=== PATIENT | male | born 1975 | race Two or more races ===

== ENCOUNTER 2024-02-17 11:20 | Inpatient (IN) | payer OTHER ==
[2024-02-17 12:02] VITALS: BMI 20.7
[2024-02-17] MEDS ORDERED: TRIMETHOBENZAMIDE HCL 200MG/2ML INJ IM ONE (12:27)
[2024-02-17] MEDS: TRIMETHOBENZAMIDE HCL 200MG/2ML INJ IM ONE (12:37)
[2024-02-17] MEDS ORDERED: BENZONATATE 200 MG CAPSULE PO PRN (14:12)
[2024-02-17] MEDS ORDERED: IBUPROFEN 400 MG TABLET (FP) PO PRN (14:12)
[2024-02-17] MEDS ORDERED: NICOTINE POLACRILEX 2 MG LOZENGE BC PRN (14:12)
[2024-02-17] MEDS ORDERED: MAGNESIUM HYDROX 2400MG/30ML ORAL SUSPENSION 30 ML CUP PO PRN (14:12)
[2024-02-17] MEDS ORDERED: guaiFENesin 600 MG TABLET.ER (FP) PO PRN (14:12)
[2024-02-17] MEDS ORDERED: IBUPROFEN 600 MG TABLET (FP) PO PRN (14:12)
[2024-02-17] MEDS ORDERED: NALOXONE (NYS OPIOID OVERDOSE PROGRAM) 4 MG/0.1 ML SPRAY NS PRN (14:12)
[2024-02-17] MEDS ORDERED: ACETAMINOPHEN 325 MG TABLET (FP) PO PRN (14:12)
[2024-02-17] MEDS ORDERED: BENZOCAINE/MENTHOL (CHLORASEPTIC ) LOZENGE MM PRN (14:12)
[2024-02-17] MEDS ORDERED: ONDANSETRON *ODT* 4 MG TABLET SL PRN (14:12)
[2024-02-17] MEDS ORDERED: NALOXONE (NARCAN) HCL 4 MG/0.1 ML SPRAY NS PRN (14:12)
[2024-02-17] MEDS ORDERED: POLYETHYLENE GLYCOL (HEALTHYLAX) 3350 17 GM PACKET PO PRN (14:12)
[2024-02-17] MEDS ORDERED: NICOTINE POLACRILEX 2 MG GUM BUC PRN (14:12)
[2024-02-17] MEDS ORDERED: LOPERAMIDE HCL 2 MG CAPSULE PO PRN (14:12)
[2024-02-17] MEDS ORDERED: DICYCLOMINE HCL 10 MG CAPSULE PO PRN (14:12)
[2024-02-17] MEDS ORDERED: chlordiazePOXIDE HCL 25 MG CAPSULE PO PRN (14:16)
[2024-02-17] MEDS: METHOCARBAMOL 500 MG TABLET PO PRN (22:22)
[2024-02-17] MEDS: MELATONIN 5 MG TABLETS PO SCH (22:22)
[2024-02-17] MEDS: THIAMINE 100 MG TABLET PO SCH (22:22)
[2024-02-18] MEDS: chlordiazePOXIDE HCL 25 MG CAPSULE PO SCH (05:32)
[2024-02-18] MEDS ORDERED: methaDONE HCL 10 MG TABLET PO SCH (09:15)
[2024-02-18] MEDS: PRENATAL VITAMINS W/ FOLIC ACID TABLET (FP) PO SCH (10:05)
[2024-02-18] MEDS: FLU VACCINE (FLULAVAL) PF 45 MCG/0.5 ML SYRINGE 2024-2025 IM ONE (12:14)
[2024-02-19] MEDS ORDERED: chlordiazePOXIDE HCL 10 MG CAPSULE PO PRN
[2024-02-19] MEDS: chlordiazePOXIDE HCL 25 MG CAPSULE PO SCH (05:50)
[2024-02-19 11:21] LABS: BASO % 0.4 % (0-2.0); EOS % 1.9 % (0-4.5); HEMATOCRIT 37.3 % (35.4-49); HEMOGLOBIN 12.9 GM/dL (11.7-16.9); LYMPH % 18.4 % (8-40); MCH 30.4 pg (25.7-33.7); MCHC 34.8 g/dl (32.0-35.9); MEAN CELL VOLUME 87.3 fl (80-96); MONO % 7.5 % (3.8-10.2); NEUT % 71.8 % (42.8-82.8); PLATELET COUNT 351 10^3/uL (134-434); RBC 4.27 M/mm3 (4.00-5.60); RDW 14.1 % (11.9-15.9); WHITE BLOOD COUNT 6.7 K/mm3 (4.0-10.0)
[2024-02-19 11:45] LABS: POTASSIUM 4.7 mmol/L (3.5-5.1)
[2024-02-19 11:53] LABS: CALCIUM 9.3 mg/dL (8.5-10.1)
[2024-02-19 11:54] LABS: BLOOD UREA NITROGEN 16.4 mg/dL (7-18)
[2024-02-19 11:57] LABS: CREATININE 0.9 mg/dL (0.55-1.3)
[2024-02-19 11:58] LABS: BILIRUBIN,TOTAL 0.4 mg/dL (0.2-1); TOT PROT 5.9 g/dl (6.4-8.2)
[2024-02-19] MEDS: MAG HYDROX/AL HYDROX/SIMETH 30 ML UNIT-DOSE CUP PO PRN (16:46)
[2024-02-19] MEDS: PANTOPRAZOLE 40 MG TABLET PO SCH (18:12)
[2024-02-19] MEDS: BISMUTH SUBSALICYLATE 524 MG/30 ML PO PRN (22:56)
[2024-02-20] MEDS: chlordiazePOXIDE HCL 10 MG CAPSULE PO SCH (05:56)
[2024-02-21] MEDS: chlordiazePOXIDE HCL 10 MG CAPSULE PO SCH (05:52)
[2024-02-22 05:59] VITALS: BP 118/63; PULSE 60; RESP 16; TEMP 97.7
[2024-02-22] MEDS: chlordiazePOXIDE HCL 10 MG CAPSULE PO ONE (05:59)
[2024-02-22] MEDS: NALOXONE (NYS OPIOID OVERDOSE PROGRAM) 4 MG/0.1 ML SPRAY NS SCH (08:43)
[2024-02-22] MEDS ORDERED: NALOXONE (NYS OPIOID OVERDOSE PROGRAM) 4 MG/0.1 ML SPRAY NS SCH (09:15)
[2024-02-22] MEDS ORDERED: PNEUMOC 20-VAL CONJ-DIP CRM/PF 0.5 ML SYRINGE IM ONE (12:00)
== END 2024-02-22 09:04 | disposition home or self-care (01) | DRG 897 ==
LOC: YASAS 11:20 → Y6N 14:20 → Y3N 14:22
PROVIDERS: ADMIT Allergy & Immunology; ATTEND Allergy & Immunology
PROC: HZ2ZZZZ Detoxification Services for Substance Abuse Treatment (ICD-10-PCS; principal; 2024-02-17)
DX: F10.230 Alcohol dependence with withdrawal, uncomplicated (principal); F11.20 Opioid dependence, uncomplicated; F14.20 Cocaine dependence, uncomplicated; F12.20 Cannabis dependence, uncomplicated; F17.210 Nicotine dependence, cigarettes, uncomplicated; F31.9 Bipolar disorder, unspecified; J45.909 Unspecified asthma, uncomplicated; Z86.69 Personal history of other diseases of the nervous system and sense organs
CPT/HCPCS: 36415; 80053; 80305; 80307; 85025; 86780; 90656; 93005; 93010; G0008

== ENCOUNTER 2024-05-20 16:17 | Inpatient (IN) | payer OTHER ==
[~2024-05-20 16:17] MED LIST: FOLIC ACID INJECTION - 1 MG, THIAMINE HCL 100 MG, MULTIVIT INJECTION ADULT 10 ML in SOD... IVPB ONE
[2024-05-20] MEDS: ACETAMINOPHEN 1000 MG/100 ML BAG IVPB ONE (17:00)
[2024-05-20] MEDS: SODIUM CHLORIDE 0.9% 500 ML INFUS.BAG IV ONE (17:00)
[2024-05-20] MEDS: PANTOPRAZOLE SODIUM 40 MG VIAL IVPUSH ONE ×2 (17:04→19:44)
[2024-05-20] MEDS ORDERED: LORazepam 2 MG/ML SDV VIAL ONE ×2 (17:06→23:52)
[2024-05-20] MEDS ORDERED: ACETAMINOPHEN INJECTION 100 ML ONE (17:07)
[2024-05-20] MEDS ORDERED: PANTOPRAZOLE SODIUM 40 MG VIAL ONE (17:07)
[2024-05-20 17:44] LABS: BASO % 0.2 % (0-2.0); EOS % 0.4 % (0-4.5); HEMATOCRIT 44.4 % (35.4-49); HEMOGLOBIN 14.8 GM/dL (11.7-16.9); LYMPH % 8.8 % (8-40); MCH 28.7 pg (25.7-33.7); MCHC 33.3 g/dl (32.0-35.9); MEAN CELL VOLUME 86.3 fl (80-96); MEAN PLT VOLUME 8.3 fl (7.5-11.1); MONO % 6.9 % (3.8-10.2); NEUT % 83.7 % (42.8-82.8); PLATELET COUNT 328 10^3/uL (134-434); RBC 5.14 M/mm3 (4.00-5.60); RDW 13.7 % (11.9-15.9); WHITE BLOOD COUNT 18.2 K/mm3 (4.0-10.0)
[2024-05-20 17:50] LABS: INR 0.97 (0.83-1.09); PROTHROMBIN TIME (PATIENT) 10.7 SEC (9.7-13.0)
[2024-05-20 18:15] LABS: CHLORIDE 101 mmol/L (98-107); POTASSIUM 3.8 mmol/L (3.5-5.1); SODIUM 140 mmol/L (136-145)
[2024-05-20 18:18] LABS: ALBUMIN 3.6 g/dl (3.4-5.0); ANION GAP 5 mmol/L (4-13); BLOOD UREA NITROGEN 19.3 mg/dL (7-18); CO2 35 mmol/L (21-32); MAGNESIUM 1.7 mg/dL (1.8-2.4)
[2024-05-20 18:19] LABS: GLUCOSE,RANDOM 100 mg/dL (74-106)
[2024-05-20 18:21] LABS: SGOT/AST 39 U/L (15-37); SGPT/ALT 29 U/L (13-61)
[2024-05-20 18:22] LABS: BILIRUBIN,TOTAL 0.2 mg/dL (0.2-1)
[2024-05-20 18:23] LABS: TOT PROT 7.1 g/dl (6.4-8.2)
[2024-05-20 18:24] LABS: ALK PHOS 85 U/L (45-117)
[2024-05-20 18:26] LABS: PHOSPHOROUS 1.1 mg/dL (2.5-4.9)
[2024-05-20] MEDS ORDERED: MAGNESIUM SULFATE IN WATER 2 GM/50 ML IVPB IVPB ONE (19:45)
[2024-05-20] MEDS ORDERED: CEFTRIAXONE 1 G/50 ML PREMIX 50 ML IVPB ONE (19:45)
[2024-05-20] MEDS: CEFTRIAXONE 1,000 MG in DEXTROSE 5%-WATER - 50 ML IVPB ONE (19:55)
[2024-05-20] MEDS: MAGNESIUM SULFATE IN WATER 2 GM/50 ML IVPB IVPB ONE (19:55)
[2024-05-20] MEDS: POTASSIUM PHOSPHATE 30 MM in DEXTROSE 5%-WATER - 250 ML IVPB ONE (20:15)
[2024-05-20 21:09] LABS: HEMOGLOBIN 13.2 GM/dL (11.7-16.9); MCH 28.8 pg (25.7-33.7); MCHC 33.8 g/dl (32.0-35.9); MEAN CELL VOLUME 85.3 fl (80-96); MEAN PLT VOLUME 7.9 fl (7.5-11.1); PLATELET COUNT 292 10^3/uL (134-434); RBC 4.57 M/mm3 (4.00-5.60); RDW 14.2 % (11.9-15.9)
[2024-05-21] MEDS: METOCLOPRAMIDE HCL INJECTION 10 MG/2 ML VIAL IVPUSH ONE
[2024-05-21] MEDS: POTASSIUM PHOSPHATE 30 MM in DEXTROSE 5%-WATER - 500 ML IVPB ONE (00:16)
[2024-05-21] MEDS: ONDANSETRON 4 MG/2 ML VIAL IVPUSH ONE (00:16)
[2024-05-21 00:46] LABS: PHOSPHOROUS 2.7 mg/dL (2.5-4.9)
[2024-05-21] MEDS: LORazepam 2 MG/ML SDV VIAL IVPUSH ONE (01:18)
[2024-05-21] MEDS: FOLIC ACID INJECTION - 1 MG, THIAMINE HCL 100 MG, MULTIVIT INJECTION ADULT 10 ML in SOD... IVPB ONE (03:58)
[2024-05-21] MEDS ORDERED: ALBUTEROL SO4 HFA INHALER IH PRN (05:23)
[2024-05-21] MEDS ORDERED: methaDONE HCL 40 MG DISPERSABLE TABLET PO ONE (08:18)
[2024-05-21 08:44] LABS: HEMATOCRIT 39.3 % (35.4-49); HEMOGLOBIN 13.3 GM/dL (11.7-16.9); MCHC 33.9 g/dl (32.0-35.9); MEAN CELL VOLUME 85.4 fl (80-96); MEAN PLT VOLUME 8.3 fl (7.5-11.1); PLATELET COUNT 304 10^3/uL (134-434); RBC 4.61 M/mm3 (4.00-5.60); RDW 14.5 % (11.9-15.9); WHITE BLOOD COUNT 19.9 K/mm3 (4.0-10.0)
[2024-05-21 08:57] LABS: LACTIC ACID 4.6 mmol/L (0.4-2.0)
[2024-05-21 08:58] LABS: CALCIUM 8.9 mg/dL (8.5-10.1)
[2024-05-21 08:59] LABS: ALBUMIN 3.2 g/dl (3.4-5.0); BLOOD UREA NITROGEN 14.1 mg/dL (7-18)
[2024-05-21 09:02] LABS: CREATININE 0.9 mg/dL (0.55-1.3); PHOSPHOROUS 2.9 mg/dL (2.5-4.9)
[2024-05-21 09:03] LABS: BILIRUBIN,TOTAL 0.3 mg/dL (0.2-1)
[2024-05-21 09:04] LABS: TOT PROT 6.2 g/dl (6.4-8.2)
[2024-05-21] MEDS: DOXEPIN HCL 25 MG CAPSULE PO SCH (09:54)
[2024-05-21] MEDS: PANTOPRAZOLE SODIUM 40 MG VIAL IVPUSH SCH (09:54)
[2024-05-21] MEDS: THIAMINE 100 MG TABLET PO SCH (09:56)
[2024-05-21] MEDS: PANTOPRAZOLE 40 MG TABLET PO SCH (09:56)
[2024-05-21] MEDS: ESCITALOPRAM OXALATE 20 MG TABLET PO SCH (09:56)
[2024-05-21] MEDS: QUEtiapine FUMARATE 100 MG TABLET (FP) PO SCH (09:56)
[2024-05-21] MEDS: SODIUM CHLORIDE 1,000 ML IV SCH (09:57)
[2024-05-21] MEDS: amLODIPine BESYLATE 10 MG TABLET (FP) PO SCH (11:02)
[2024-05-21] MEDS: risperiDONE 1 MG TABLET PO SCH (11:02)
[2024-05-21] MEDS: BENZTROPINE MESYLATE 1 MG TABLET PO SCH (11:02)
[2024-05-21 11:12] LABS: ANISOCYTOSIS 0; MACROCYTOSIS 0
[2024-05-21] MEDS: FOLIC ACID 1 MG TABLET (FP) PO SCH (12:59)
[2024-05-21 14:51] LABS: LACTIC ACID 5.5 mmol/L (0.4-2.0)
[2024-05-21] MEDS: IBUPROFEN 600 MG TABLET (FP) PO PRN (19:53)
[2024-05-21 20:24] LABS: URINE APPEARANCE CLEAR; URINE BILIRUBIN NEGATIVE (NEGATIVE); URINE COLOR YELLOW; URINE GLUCOSE (UA) NEGATIVE (NEGATIVE); URINE KETONE NEGATIVE (NEGATIVE); URINE LEUK ESTERASE NEGATIVE (NEGATIVE); URINE NITRITE NEGATIVE (NEGATIVE); URINE PROTEIN NEGATIVE (NEGATIVE); URINE UROBILINOGEN 0.2 mg/dL (0.2-1.0)
[2024-05-21 23:12] LABS: LACTIC ACID 2.8 mmol/L (0.4-2.0)
[2024-05-22] MEDS: LORazepam 2 MG/ML SDV VIAL IVPUSH PRN (01:31)
[2024-05-22 08:23] LABS: HEMATOCRIT 36.2 % (35.4-49); HEMOGLOBIN 11.9 GM/dL (11.7-16.9); MCH 28.5 pg (25.7-33.7); MCHC 32.9 g/dl (32.0-35.9); MEAN CELL VOLUME 86.7 fl (80-96); MEAN PLT VOLUME 7.6 fl (7.5-11.1); PLATELET COUNT 245 10^3/uL (134-434); RBC 4.18 M/mm3 (4.00-5.60); WHITE BLOOD COUNT 11.1 K/mm3 (4.0-10.0)
[2024-05-22 08:41] LABS: POTASSIUM 4.3 mmol/L (3.5-5.1)
[2024-05-22 08:46] LABS: CALCIUM 8.8 mg/dL (8.5-10.1)
[2024-05-22 08:47] LABS: ALBUMIN 2.8 g/dl (3.4-5.0); BLOOD UREA NITROGEN 20.4 mg/dL (7-18); MAGNESIUM 2.2 mg/dL (1.8-2.4)
[2024-05-22 08:50] LABS: PHOSPHOROUS 4.2 mg/dL (2.5-4.9)
[2024-05-22 08:51] LABS: BILIRUBIN,TOTAL 0.2 mg/dL (0.2-1); TOT PROT 5.2 g/dl (6.4-8.2)
[2024-05-22] MEDS ORDERED: methaDONE HCL 10 MG TABLET PO PRN (10:47)
[2024-05-22 15:02] VITALS: BMI 22.1
[2024-05-22] MEDS ORDERED: POLYETHYLENE GLYCOL (HEALTHYLAX) 3350 17 GM PACKET PO PRN (16:56)
[2024-05-22] MEDS: chlordiazePOXIDE HCL 10 MG CAPSULE PO SCH (19:31)
[2024-05-22] MEDS ORDERED: levETIRAcetam 250 MG TABLET PO SCH (22:00)
[2024-05-22] MEDS: levETIRAcetam 250 MG TABLET PO SCH (22:49)
[2024-05-23 07:20] LABS: HEMATOCRIT 36.3 % (35.4-49); HEMOGLOBIN 11.8 GM/dL (11.7-16.9); MCH 28.7 pg (25.7-33.7); MCHC 32.6 g/dl (32.0-35.9); MEAN CELL VOLUME 88.1 fl (80-96); PLATELET COUNT 225 10^3/uL (134-434); RBC 4.11 M/mm3 (4.00-5.60); RDW 14.7 % (11.9-15.9); WHITE BLOOD COUNT 13.5 K/mm3 (4.0-10.0)
[2024-05-23 07:47] LABS: POTASSIUM 4.2 mmol/L (3.5-5.1)
[2024-05-23 07:53] LABS: ALBUMIN 2.7 g/dl (3.4-5.0); CALCIUM 8.1 mg/dL (8.5-10.1)
[2024-05-23 07:54] LABS: BLOOD UREA NITROGEN 23.3 mg/dL (7-18); MAGNESIUM 1.7 mg/dL (1.8-2.4)
[2024-05-23 07:57] LABS: CREATININE 1.1 mg/dL (0.55-1.3); PHOSPHOROUS 3.9 mg/dL (2.5-4.9)
[2024-05-23 07:58] LABS: BILIRUBIN,TOTAL 0.4 mg/dL (0.2-1); TOT PROT 5.3 g/dl (6.4-8.2)
[2024-05-23] MEDS: LORazepam 2 MG/ML SDV VIAL IVPUSH ONE (23:43)
[2024-05-24] MEDS: MELATONIN 5 MG TABLETS PO PRN (00:40)
[2024-05-24 08:03] LABS: POTASSIUM 4.3 mmol/L (3.5-5.1)
[2024-05-24 08:06] LABS: ALBUMIN 2.9 g/dl (3.4-5.0); BLOOD UREA NITROGEN 22.5 mg/dL (7-18); CALCIUM 8.7 mg/dL (8.5-10.1); MAGNESIUM 1.8 mg/dL (1.8-2.4)
[2024-05-24 08:10] LABS: CREATININE 1.1 mg/dL (0.55-1.3)
[2024-05-24 08:11] LABS: BILIRUBIN,TOTAL 0.5 mg/dL (0.2-1); TOT PROT 5.7 g/dl (6.4-8.2)
[2024-05-24 08:16] LABS: HEMATOCRIT 35.4 % (35.4-49); HEMOGLOBIN 11.7 GM/dL (11.7-16.9); MCH 28.9 pg (25.7-33.7); MCHC 33.1 g/dl (32.0-35.9); MEAN CELL VOLUME 87.2 fl (80-96); MEAN PLT VOLUME 7.9 fl (7.5-11.1); PLATELET COUNT 232 10^3/uL (134-434); RBC 4.05 M/mm3 (4.00-5.60); RDW 14.3 % (11.9-15.9); WHITE BLOOD COUNT 18.9 K/mm3 (4.0-10.0)
[2024-05-24] MEDS: POLYETHYLENE GLYCOL (HEALTHYLAX) 3350 17 GM PACKET PO SCH (09:08)
[2024-05-24] MEDS: amLODIPine BESYLATE 10 MG TABLET (FP) PO SCH (09:08)
[2024-05-24] MEDS: chlordiazePOXIDE HCL 10 MG CAPSULE PO SCH (09:09)
[2024-05-24 19:54] LABS: BASO % 0.1 % (0-2.0); EOS % 0.9 % (0-4.5); HEMATOCRIT 37.3 % (35.4-49); HEMOGLOBIN 12.4 GM/dL (11.7-16.9); LYMPH % 9.5 % (8-40); MCH 28.8 pg (25.7-33.7); MCHC 33.2 g/dl (32.0-35.9); MEAN CELL VOLUME 86.8 fl (80-96); MEAN PLT VOLUME 8.1 fl (7.5-11.1); MONO % 2.2 % (3.8-10.2); NEUT % 87.3 % (42.8-82.8); PLATELET COUNT 237 10^3/uL (134-434); RDW 14.6 % (11.9-15.9); WHITE BLOOD COUNT 14.7 K/mm3 (4.0-10.0)
[2024-05-25 08:39] LABS: POTASSIUM 4.1 mmol/L (3.5-5.1)
[2024-05-25 08:46] LABS: MAGNESIUM 1.8 mg/dL (1.8-2.4)
[2024-05-25 08:48] LABS: ALBUMIN 3.2 g/dl (3.4-5.0); CREATININE 0.9 mg/dL (0.55-1.3)
[2024-05-25 08:49] LABS: BLOOD UREA NITROGEN 18.4 mg/dL (7-18)
[2024-05-25 08:50] LABS: TOT PROT 6.2 g/dl (6.4-8.2)
[2024-05-25 08:55] LABS: BILIRUBIN,TOTAL 0.2 mg/dL (0.2-1)
[2024-05-25] MEDS: clonazePAM 0.5 MG TABLET PO PRN (22:30)
[2024-05-26] MEDS ORDERED: methaDONE HCL 40 MG DISPERSABLE TABLET PO ONE (10:37)
[2024-05-26] MEDS: QUEtiapine FUMARATE 100 MG TABLET (FP) PO ONE (16:10)
[2024-05-26] MEDS: DOXEPIN HCL 25 MG CAPSULE PO ONE (16:10)
[2024-05-26] MEDS: levETIRAcetam 250 MG TABLET PO ONE (16:10)
[2024-05-27] MEDS ORDERED: methaDONE HCL 10 MG TABLET PO ONE (07:38)
[2024-05-27] MEDS: ONDANSETRON 4 MG/2 ML VIAL IVPUSH PRN (10:51)
[2024-05-27] MEDS: MAGNESIUM CITRATE 300 ML BOTTLE PO ONE (17:07)
[2024-05-28 13:57] VITALS: BP 108/88; PULSE 81; RESP 16; TEMP 97.6
[2024-05-28] MEDS: methaDONE HCL 40 MG DISPERSABLE TABLET PO ONE (14:46)
== END 2024-05-28 14:00 | disposition home or self-care (01) | DRG 871 ==
LOC: JER 16:17 → JERBED 17:44 → J4S 05-21 04:19
PROVIDERS: ADMIT Student in an Organized Health Care Education/Training Program; ATTEND Internal Medicine
DX: A41.89 Other specified sepsis (principal); U07.1 COVID-19; E87.3 Alkalosis; F10.230 Alcohol dependence with withdrawal, uncomplicated; F11.20 Opioid dependence, uncomplicated; I45.10 Unspecified right bundle-branch block; R00.1 Bradycardia, unspecified; K44.9 Diaphragmatic hernia without obstruction or gangrene; I10 Essential (primary) hypertension; F31.9 Bipolar disorder, unspecified; E83.42 Hypomagnesemia; D72.829 Elevated white blood cell count, unspecified; K59.00 Constipation, unspecified; R26.81 Unsteadiness on feet; E83.39 Other disorders of phosphorus metabolism; F17.210 Nicotine dependence, cigarettes, uncomplicated; K59.03 Drug induced constipation; T40.2X5A Adverse effect of other opioids, initial encounter; F41.8 Other specified anxiety disorders; F14.90 Cocaine use, unspecified, uncomplicated; J45.909 Unspecified asthma, uncomplicated
CPT/HCPCS: 0241U-QW; 36415; 71045-TC-FY; 71250-TC; 74018-TC-FY; 74177-TC; 76700-TC; 80053; 81003; 82272; 82962; 83605; 83690; 83735; 84100; 84436; 84443; 84484; 85025; 85027; 85610; 86850; 86900; 86901; 87086; 93005; 93010; 97116-GP; 97161-GP; 99285-25; J0131; Q9967